=== PATIENT | female | born 1945 | race Caucasian/White ===

== ENCOUNTER → 2023-11-03 08:49 | Outpatient (REF) | payer MEDICARE, BC, SELFPAY | LOC: CLAB 08:49 | PROVIDERS: ATTENDING PHYSICIAN Obstetrics & Gynecology | DX: N39.0 Urinary tract infection, site not specified (principal) | CPT/HCPCS: 87077; 87086; 87186 ==

== ENCOUNTER → 2023-11-04 13:42 | Outpatient (REF) | payer MEDICARE, BC, SELFPAY | LOC: MRI 3T 13:42 | PROVIDERS: ATTENDING PHYSICIAN Physician Assistant Surgical; FAMILY PHYSICIAN Emergency Medicine | DX: M51.36 Other intervertebral disc degeneration, lumbar region (principal); M54.50 Low back pain, unspecified | CPT/HCPCS: 72148 ==

== ENCOUNTER → 2023-12-14 10:38 | Outpatient (REF) | payer MEDICARE, BC, SELFPAY ==
[2023-12-14 12:12] LABS: Urine Albumin Negative (Neg - Trace); Urine Bilirubin Negative (Negative); Urine Character Clear (Clear); Urine Color Yellow; Urine Glucose Negative (Negative); Urine Ketone Negative (Negative); Urine Leukocyte Negative (Negative); Urine Nitrite Negative (Negative); Urine Occult Blood Trace (Negative); Urine Specific Gravity 1.015 (<1.030); Urine Urobilinogen Negative (Neg - 1+)
[2023-12-14 12:39] LABS: Urine Red Blood Cell 0-2 /HPF (0-2); Urine Squamous Cell >30 /LPF (Few)
[2023-12-16 21:18] LABS: Quantiferon Mitogen minus NIL >10.00 IU/mL; Quantiferon NIL 0.02 IU/mL; Quantiferon TB Gold Plus Negative (Negative)
== END ==
LOC: REG 10:38
PROVIDERS: ATTENDING PHYSICIAN Obstetrics & Gynecology; FAMILY PHYSICIAN Internal Medicine Critical Care Medicine
DX: R91.8 Other nonspecific abnormal finding of lung field (principal); N39.0 Urinary tract infection, site not specified
CPT/HCPCS: 36415; 81003; 81015; 86480; 86698; 87086

== ENCOUNTER → 2024-01-24 10:05 | Outpatient (REF) | payer MEDICARE, BC, SELFPAY | LOC: RAD 10:05 | PROVIDERS: ATTENDING PHYSICIAN Internal Medicine Critical Care Medicine; FAMILY PHYSICIAN Emergency Medicine | DX: R91.8 Other nonspecific abnormal finding of lung field (principal); I89.8 Other specified noninfective disorders of lymphatic vessels and lymph nodes; J92.9 Pleural plaque without asbestos | CPT/HCPCS: 71250 ==

== ENCOUNTER → 2024-02-08 14:33 | Outpatient (REF) | payer MEDICARE, BC, SELFPAY ==
[2024-02-08 16:33] LABS: Urine Albumin Negative (Neg - Trace); Urine Bilirubin Negative (Negative); Urine Character Very Cloudy (Clear); Urine Color Yellow; Urine Glucose Negative (Negative); Urine Ketone 1+ (Negative); Urine Leukocyte 1+ (Negative); Urine Nitrite Positive (Negative); Urine Occult Blood Trace (Negative); Urine Urobilinogen Negative (Neg - 1+)
[2024-02-08 18:08] LABS: Urine Mucus Few
[2024-02-08 18:09] LABS: Urine Red Blood Cell 0-2 /HPF (0-2)
[2024-02-08 18:10] LABS: Urine Bacteria Many (Negative)
[2024-02-08 18:11] LABS: Urine Calcium Oxalate Crystals Present; Urine Granular Cast 0-2 /LPF (0)
== END ==
LOC: REG 14:33
PROVIDERS: ATTENDING PHYSICIAN Obstetrics & Gynecology; FAMILY PHYSICIAN Emergency Medicine
DX: N39.0 Urinary tract infection, site not specified (principal)
CPT/HCPCS: 81003; 81015; 87077; 87086; 87186

== ENCOUNTER → 2024-05-22 06:25 | Day surgery (SDC) | payer MEDICARE, BC, SELFPAY | LOC: GI 06:25 | PROVIDERS: ATTENDING PHYSICIAN Internal Medicine | DX: Z12.11 Encounter for screening for malignant neoplasm of colon (principal); K64.8 Other hemorrhoids; Q43.8 Other specified congenital malformations of intestine; D12.3 Benign neoplasm of transverse colon; K63.5 Polyp of colon; Z86.0100 Personal history of colon polyps, unspecified | CPT/HCPCS: 45385; 45380; 88305 ==

== ENCOUNTER → 2024-08-07 11:07 | Outpatient (REF) | payer MEDICARE, BC, SELFPAY ==
[2024-08-07 12:59] LABS: % Basophils 1.1 % (0-2); % Eosinophils 1.5 % (0-6); % Immature Granulocytes 0.2 % (0-0.5); % Lymphocytes 31.8 % (20.5-51.1); % Monocytes 9.6 % (1.7-9.3); % Neutrophils 55.8 % (42.2-75.2); Absolute Basophils 0.1 10^3/uL (0-0.2); Absolute Eosinophils 0.1 10^3/uL (0-0.7); Absolute Lymphocytes 1.5 10^3/uL (1.2-3.4); Absolute Monocytes 0.4 10^3/uL (0.1-0.6); Absolute Neutrophils 2.6 10^3/uL (1.4-6.5); Hematocrit 39.7 % (37.0-47.0); Hemoglobin 12.9 g/dL (12.0-16.0); Mean Corp Hgb Conc. 32.5 g/dL (33.0-37.0); Mean Corpuscular Hgb 30.4 pg (27.0-31.0); Mean Corpuscular Volume 93.4 fL (81.0-99.0); Mean Platelet Volume 10.5 fL (7.4-10.4); Nucleated Red Blood Cells % 0 %; Platelet Count 316 10^3/uL (130-400); Red Blood Cell Count 4.25 10^6/uL (4.20-5.40); White Blood Cell Count 4.6 10^3/uL (4.8-10.8)
[2024-08-07 13:37] LABS: ALT (SGPT) 27 U/L (0-35); AST (SGOT) 40 U/L (14-36); Albumin 4.7 g/dl (3.5-5.0); Alkaline Phosphatase 73 U/L (38-126); Blood Urea Nitrogen 26 mg/dl (7-17); Calcium 9.6 mg/dl (8.4-10.2); Carbon Dioxide 29 mmol/L (22-30); Chloride 100 mmol/L (98-107); Glucose 91 mg/dl (70-99); HDL Cholesterol 65 mg/dl; LDL Cholesterol, Calculated 180 mg/dl; Potassium 4.8 mmol/L (3.5-5.1); Sodium 138 mmol/L (135-145); Total Bilirubin 0.5 mg/dl (0.2-1.3); Total Cholesterol 283 mg/dl (50-199); Total Protein 7.7 g/dl (6.3-8.2); Triglyceride 191 mg/dl (10-149); Very Low Density Lipoprotein 38 mg/dl (0-30); eGFR > 60.00
[2024-08-07 13:39] LABS: Urine Albumin Negative (Neg - Trace); Urine Bilirubin Negative (Negative); Urine Character Slightly Cloudy (Clear); Urine Color Yellow; Urine Glucose Negative (Negative); Urine Ketone Negative (Negative); Urine Leukocyte Trace (Negative); Urine Nitrite Positive (Negative); Urine Occult Blood Negative (Negative); Urine Specific Gravity 1.015 (<1.030); Urine Urobilinogen Negative (Neg - 1+)
[2024-08-07 13:50] LABS: Glycohemoglobin (HgbA1c) 5.6 % (4.0-5.6)
[2024-08-07 13:59] LABS: TSH Reflex To Free T4 2.09 uIU/ml (0.47-4.68)
[2024-08-07 14:31] LABS: Urine Mucus Moderate
[2024-08-07 14:34] LABS: Urine Amorphous Seen
[2024-08-07 14:35] LABS: Urine Bacteria Many (Negative); Urine Red Blood Cell 0-2 /HPF (0-2)
== END ==
LOC: REG 11:07
PROVIDERS: ATTENDING PHYSICIAN Emergency Medicine
DX: Z85.3 Personal history of malignant neoplasm of breast (principal); Z12.31 Encounter for screening mammogram for malignant neoplasm of breast; Z00.00 Encounter for general adult medical examination without abnormal findings; K59.09 Other constipation; Z01.818 Encounter for other preprocedural examination; I10 Essential (primary) hypertension
CPT/HCPCS: 36415; 77063; 77067; 80053; 80061; 81003; 81015; 83036; 84443; 85025

== ENCOUNTER → 2024-09-11 15:02 | Outpatient (REF) | payer MEDICARE, BC, SELFPAY ==
[2024-09-11 16:09] LABS: Urine Albumin 1+ (Neg - Trace); Urine Bilirubin Negative (Negative); Urine Character Cloudy (Clear); Urine Color Yellow; Urine Glucose Negative (Negative); Urine Ketone Negative (Negative); Urine Leukocyte 3+ (Negative); Urine Nitrite Positive (Negative); Urine Occult Blood 2+ (Negative); Urine Specific Gravity 1.015 (<1.030); Urine Urobilinogen Negative (Neg - 1+); Urine pH 6.5 (5.0-9.0)
[2024-09-11 17:01] LABS: Urine Bacteria Many (Negative)
== END ==
LOC: REG 15:02
PROVIDERS: ATTENDING PHYSICIAN Emergency Medicine
DX: R82.90 Unspecified abnormal findings in urine (principal)
CPT/HCPCS: 81003; 81015; 87077; 87086; 87186

== ENCOUNTER 2024-11-27 07:01 | Outpatient (RCR) | payer MEDICARE, BC, SELFPAY | END 2024-11-27 23:59 | disposition home or self-care (01) | LOC: RPT 07:01 | PROVIDERS: ATTENDING PHYSICIAN Emergency Medicine | DX: M62.89 Other specified disorders of muscle (principal); N39.3 Stress incontinence (female) (male); K59.00 Constipation, unspecified; N39.41 Urge incontinence; Z73.6 Limitation of activities due to disability | CPT/HCPCS: 97110; 97162; 97530 ==

== ENCOUNTER 2025-01-02 11:52 | Outpatient (RCR) | payer MEDICARE, BC, SELFPAY | END 2025-01-02 23:59 | disposition home or self-care (01) | LOC: RPT 11:52 | PROVIDERS: ATTENDING PHYSICIAN Emergency Medicine | DX: M62.89 Other specified disorders of muscle (principal); N39.3 Stress incontinence (female) (male); K59.00 Constipation, unspecified; N39.41 Urge incontinence; Z73.6 Limitation of activities due to disability | CPT/HCPCS: 97110; 97140; 97530 ==

== ENCOUNTER → 2025-01-03 13:49 | Outpatient (REF) | payer MEDICARE, BC, SELFPAY ==
[2025-01-03 14:29] LABS: Urine Albumin Negative (Neg - Trace); Urine Bilirubin Negative (Negative); Urine Character Cloudy (Clear); Urine Color Yellow; Urine Glucose Negative (Negative); Urine Ketone Negative (Negative); Urine Leukocyte 2+ (Negative); Urine Nitrite Positive (Negative); Urine Occult Blood 1+ (Negative); Urine Specific Gravity 1.015 (<1.030); Urine Urobilinogen Negative (Neg - 1+)
[2025-01-03 14:37] LABS: Urine Bacteria Moderate (Negative); Urine White Cell 16-20 /HPF (0-5)
== END ==
LOC: REG 13:49
PROVIDERS: ATTENDING PHYSICIAN Obstetrics & Gynecology; FAMILY PHYSICIAN Emergency Medicine
DX: N39.0 Urinary tract infection, site not specified (principal)
CPT/HCPCS: 81003; 81015; 87086; 87088; 87186

== ENCOUNTER → 2025-01-26 11:24 | Outpatient (REF) | payer MEDICARE, BC, SELFPAY | LOC: RAD 11:24 | PROVIDERS: ATTENDING PHYSICIAN Internal Medicine Critical Care Medicine; FAMILY PHYSICIAN Emergency Medicine | DX: R91.8 Other nonspecific abnormal finding of lung field (principal) | CPT/HCPCS: 71250 ==

== ENCOUNTER 2025-01-28 12:05 | Outpatient (RCR) | payer MEDICARE, BC, SELFPAY | END 2025-01-28 23:59 | disposition home or self-care (01) | LOC: RPT 12:05 | PROVIDERS: ATTENDING PHYSICIAN Emergency Medicine | DX: M62.89 Other specified disorders of muscle (principal); N39.3 Stress incontinence (female) (male); K59.00 Constipation, unspecified; N39.41 Urge incontinence; Z73.6 Limitation of activities due to disability | CPT/HCPCS: 97110; 97140 ==

== ENCOUNTER 2025-02-20 12:01 | Outpatient (RCR) | payer MEDICARE, BC, SELFPAY | END 2025-02-25 12:42 | disposition home or self-care (01) | LOC: RPT 12:01 | PROVIDERS: ATTENDING PHYSICIAN Emergency Medicine | DX: M62.89 Other specified disorders of muscle; N39.3 Stress incontinence (female) (male); K59.00 Constipation, unspecified; N39.41 Urge incontinence; Z73.6 Limitation of activities due to disability | CPT/HCPCS: 97110; 97140; 97530 ==

== ENCOUNTER → 2025-04-25 15:08 | Outpatient (REF) | payer MEDICARE, BC, SELFPAY ==
[2025-04-25 16:21] LABS: Urine Character Cloudy (Clear)
[2025-04-25 16:43] LABS: Urine Red Blood Cell 0-2 /HPF (0-2); Urine Squamous Cell >30 /LPF (Few)
[2025-04-25 16:44] LABS: Urine White Cell 16-20 /HPF (0-5)
== END ==
LOC: REG 15:08
PROVIDERS: ATTENDING PHYSICIAN Surgery; FAMILY PHYSICIAN Family Medicine
DX: N39.0 Urinary tract infection, site not specified (principal)
CPT/HCPCS: 81003; 81015; 87077; 87086; 87186

== ENCOUNTER → 2025-06-06 11:34 | Outpatient (REF) | payer MEDICARE, BC, SELFPAY ==
[2025-06-06 12:22] LABS: Urine Character Clear (Clear)
[2025-06-06 12:59] LABS: Urine Squamous Cell >30 /LPF (Few)
[2025-06-06 13:00] LABS: Urine White Cell 26-30 /HPF (0-5)
== END ==
LOC: REG 11:34
PROVIDERS: ATTENDING PHYSICIAN Obstetrics & Gynecology; FAMILY PHYSICIAN Family Medicine
DX: N39.0 Urinary tract infection, site not specified (principal)
CPT/HCPCS: 81003; 81015; 87077; 87086; 87186

== ENCOUNTER → 2025-06-26 15:16 | Outpatient (REF) | payer MEDICARE, BC, SELFPAY ==
[2025-06-26 16:33] LABS: Urine Character Cloudy (Clear)
[2025-06-26 16:56] LABS: Urine Squamous Cell 0-2 /LPF (Few)
[2025-06-26 16:57] LABS: Urine Red Blood Cell 0-2 /HPF (0-2); Urine White Cell 0-2 /HPF (0-5)
== END ==
LOC: REG 15:16
PROVIDERS: ATTENDING PHYSICIAN Obstetrics & Gynecology
DX: N39.0 Urinary tract infection, site not specified (principal)
CPT/HCPCS: 81003; 81015; 87077; 87086; 87186

== ENCOUNTER → 2025-07-19 15:36 | Outpatient (REF) | payer MEDICARE, BC, SELFPAY | LOC: WDC 15:36 | PROVIDERS: ATTENDING PHYSICIAN Family Medicine; FAMILY PHYSICIAN Emergency Medicine | DX: Z12.31 Encounter for screening mammogram for malignant neoplasm of breast (principal) | CPT/HCPCS: 77063; 77067 ==